=== PATIENT | female | born 1945 | race Caucasian/White ===

== ENCOUNTER → 2019-03-23 | Outpatient (CLI) | payer OTHER ==
[2019-03-23 11:06] LABS: CREATININE 1.38 mg/dL (0.55-1.02)
== END | disposition home or self-care (01) ==
LOC: CT 10:13 → LAB 10:13 → CT 11:00
PROVIDERS: Radiology Diagnostic Radiology
DX: K57.90 Diverticulosis of intestine, part unspecified, without perforation or abscess without bleeding (principal)

== ENCOUNTER → 2019-11-07 | Outpatient (CLI) | payer OTHER, MEDICAID | END | disposition home or self-care (01) | LOC: MRI 13:35 | PROVIDERS: ATTEND Urology | DX: N28.89 Other specified disorders of kidney and ureter (principal) ==

== ENCOUNTER → 2019-11-16 | Outpatient (CLI) | payer OTHER, MEDICAID ==
[2019-11-16 12:18] LABS: CREATININE 1.21 mg/dL (0.55-1.02); POTASSIUM 4.2 mmol/L (3.5-5.1)
== END | disposition home or self-care (01) ==
LOC: LAB 11:33
PROVIDERS: ATTEND Internal Medicine
DX: N18.3 Chronic kidney disease, stage 3 (moderate) (principal)